=== PATIENT | female | born 1965 | race Caucasian/White ===

== ENCOUNTER 2016-08-13 23:02 | Emergency (ER) | payer OTHER ==
[2016-08-13 23:34] LABS: HEMOGLOBIN 12.4 gm/dl (12.3-15.3); RED BLOOD COUNT 3.97 M/UL (4.00-5.10); WHITE BLOOD COUNT 8.7 K/UL (4.5-11.0)
[2016-08-13 23:53] LABS: BUN/CREATININE RATIO 14 (0-10)
== END 2016-08-14 04:35 | disposition home or self-care (01) ==
LOC: ER1 23:02
PROVIDERS: Emergency Medicine
DX: I16.0 Hypertensive urgency (principal); R07.89 Other chest pain; I10 Essential (primary) hypertension; Z88.8 Allergy status to other drugs, medicaments and biological substances; Z88.1 Allergy status to other antibiotic agents; Z79.899 Other long term (current) drug therapy
CPT/HCPCS: 36415; 70450; 71010; 80053; 82550; 82553; 83874; 83880; 84484; 85025; 85379; 93005; 96374; 99285; J1885

== ENCOUNTER 2020-09-27 23:21 | Emergency (ER) | payer OTHER, MEDICAID ==
[~2020-09-27 23:21] MED LIST: CYMBALTA60 MG PO; DIOVAN80 MG PO; HYDROCHLOROTH12.5 MG PO; KLONOPIN TAB 00.5 MG PO; LEVOTHYROXINE75 MCG PO; METFORMIN HCL500 M2 PO; METOPROLOL SUCC50 MG PO; MOBIC15 MG PO; NEURONTIN800 MG PO; SEROQUEL50 MG PO; VENLAFAXINE HC150 MG PO; [UNRECOGNIZED DRUG - OTHER] PO
[2020-09-28] MEDS ORDERED: IBUPROFEN600 MG PO (03:06)
== END 2020-09-28 03:25 | disposition home or self-care (01) ==
LOC: ER1 23:21
DX: M25.511 Pain in right shoulder (principal); M54.5 Low back pain; G89.29 Other chronic pain; V49.40XA Driver injured in collision with unspecified motor vehicles in traffic accident, initial encounter; Y92.410 Unspecified street and highway as the place of occurrence of the external cause
CPT/HCPCS: 72040; 72100; 73030; 73502; 96372; 99283; J1885

== ENCOUNTER 2021-09-29 19:30 | Emergency (ER) | payer OTHER, MEDICAID ==
[~2021-09-29 19:30] MED LIST changes: +IBUPROFEN600 MG PO
[2021-09-29 20:15] LABS: HEMOGLOBIN 13.5 gm/dl (12.3-15.3); RED BLOOD COUNT 4.42 M/UL (4.00-5.10)
[2021-09-29] MEDS ORDERED: HYDROCODON-ACE1 EAC4 PO (22:59)
== END 2021-09-29 23:15 | disposition home or self-care (01) ==
LOC: ER1 19:30
PROVIDERS: Emergency Medicine
DX: S22.22XA Fracture of body of sternum, initial encounter for closed fracture (principal); S90.02XA Contusion of left ankle, initial encounter; E11.9 Type 2 diabetes mellitus without complications; I10 Essential (primary) hypertension; V43.52XA Car driver injured in collision with other type car in traffic accident, initial encounter; Y92.410 Unspecified street and highway as the place of occurrence of the external cause
CPT/HCPCS: 70450; 71260; 72125; 73600; 80048; 84484; 85025; 93005; 96374; 96375; 99284; J1885; J2270; Q9967